=== PATIENT | female | born 1940 | race Caucasian/White ===

== ENCOUNTER 2016-05-29 08:06 | Day surgery (SDC) | payer MEDICARE ==
[2016-05-24 12:32] VITALS: BMI 22.3
[~2016-05-29 08:06] MED LIST: LACTATED RINGERS 1,000 ML IV SCH; LIDOCAINE 1% 20 ML VIAL (10MG/ML) FOR IV START INTRADERMA PRN
[2016-05-29 08:20] VITALS: TEMP 98
[2016-05-29] MEDS ORDERED: LACTATED RINGERS 1,000 ML IV ONE (08:20)
[2016-05-29] MEDS ORDERED: LIDOCAINE 1% 20 ML VIAL (10MG/ML) FOR IV START INTRADERMA ONE (08:21)
[2016-05-29] MEDS ORDERED: LIDOCAINE 1% INJ 10MG/ML (20 ML MDV) ONE (09:21)
[2016-05-29] MEDS ORDERED: PROPOFOL 10 MG/ML 20 ML VIAL IV ONE (09:21)
--- NOTE | 2016-05-29 09:39 | P.PCN ---
Date of Procedure: 05/29/16 Procedure(s) Performed: BRIEF HISTORY: Patient is a 75-year-old pleasant white female scheduled for an elective colonoscopy as a part of evaluation of change in bowel habits. Her last colonoscopy was 10 years ago. PROCEDURE PERFORMED: Colonoscopy. PREOPERATIVE DIAGNOSIS: Change in bowel habits. IV sedation per Anesthesia. PROCEDURE: After informed consent was obtained, the patient, was brought into the endoscopy unit. IV sedation was administered by Anesthesia under continuous monitoring. Digital rectal examination was normal. Initially the Olympus CF- 160 flexible video colonoscope was then inserted in the rectum, gradually advanced into the cecum without any difficulty. Careful examination was performed as the scope was gradually being withdrawn. Ileocecal valve and the appendiceal orifice were visualized and appeared normal. Prep was excellent. Mucosa of the cecum, ascending colon, transverse colon, descending colon, sigmoid colon, and rectum appeared normal. Retroflexion was performed in the rectum and no lesions were seen. The patient tolerated the procedure well. IMPRESSION: Normal-appearing colon from rectum to cecum with no evidence of colitis or colorectal neoplasia.. RECOMMENDATIONS: Findings of this examination were discussed with the patient as well as a family. Because of her age I would not recommend any further screening colonoscopy.
[2016-05-29 09:48] VITALS: RESP 16
[2016-05-29 10:17] VITALS: BP 134/75; PULSE 69
== END 2016-05-29 10:27 | disposition home or self-care (01) ==
LOC: ORWHC2ENDO 08:06
PROVIDERS: ATTEND Internal Medicine Gastroenterology
DX: R19.4 Change in bowel habit (principal); E07.9 Disorder of thyroid, unspecified; Z79.899 Other long term (current) drug therapy
CPT/HCPCS: 45378; J2001; J2704

== ENCOUNTER → 2016-05-29 | Outpatient (CLI) | payer MEDICARE | LOC: LABWHC1 07:46 | PROVIDERS: ATTEND Family Medicine | DX: E03.9 Hypothyroidism, unspecified (principal); M79.1 Myalgia; E55.9 Vitamin D deficiency, unspecified; R19.4 Change in bowel habit | CPT/HCPCS: 36415; 82272 ==

== ENCOUNTER → 2016-06-07 | Outpatient (CLI) | payer MEDICARE ==
[2016-06-07 08:55] LABS: Basophils # (A) 0.1 k/uL (0-0.2); Basophils % (A) 1 %; CH 29.4; CHCM 32.7; Eosinophils # (A) 0.2 k/uL (0-0.7); Eosinophils % (A) 4 %; HCT 42.3 % (34.0-46.0); HDW 2.43; HGB 14.1 gm/dL (11.4-16.0); Luc % (Auto) 3; Lymphocytes # (A) 1.6 k/uL (1.0-4.8); Lymphocytes % (A) 27 %; MCH 30.1 pg (25.0-35.0); MCHC 33.3 g/dL (31.0-37.0); MCV 90.4 fL (80.0-100.0); Monocytes # (A) 0.4 k/uL (0-1.0); Monocytes % (A) 7 %; Neutrophils # (A) 3.5 k/uL (1.3-7.7); Neutrophils % (A) 58 %; RBC 4.68 m/uL (3.80-5.40); RDW 13.6 % (11.5-15.5); WBC (Perox) 6.05
[2016-06-07 10:14] LABS: Erythrocyte Sedimentation Rate 4 mm/hr (0-20)
[2016-06-07 12:17] LABS: ALT 31 U/L (9-52); AST 30 U/L (14-36); Alkaline Phosphatase 58 U/L (38-126); Anion Gap 10 mmol/L; Blood Urea Nitrogen 14 mg/dL (7-17); Calcium 9.7 mg/dL (8.4-10.2); Carbon Dioxide 28 mmol/L (22-30); Chloride 106 mmol/L (98-107); Cholesterol 174 mg/dL (<200); Glucose 85 mg/dL (74-99); HDL Cholesterol 64 mg/dL (40-60); Magnesium 2.3 mg/dL (1.6-2.3); Non-African American GFR(MDRD) >60 (>60 ml/min/1.73 sqM); Potassium 4.3 mmol/L (3.5-5.1); Sodium 144 mmol/L (137-145); Total Bilirubin 0.6 mg/dL (0.2-1.3); Total Protein 7.3 g/dL (6.3-8.2); Triglycerides 66 mg/dL (<150)
[2016-06-07 12:47] LABS: Vitamin B12 538 pg/mL
== END | disposition home or self-care (01) ==
LOC: LABWHC1 08:19
PROVIDERS: ATTEND Family Medicine
DX: E55.9 Vitamin D deficiency, unspecified (principal); E03.9 Hypothyroidism, unspecified; M79.1 Myalgia
CPT/HCPCS: 36415; 80053; 80061; 82306; 82607; 83735; 83874; 84439; 84443; 85025; 85652

== ENCOUNTER → 2016-12-27 | Outpatient (CLI) | payer MEDICARE ==
--- NOTE | 2016-12-27 13:51 | MM ---
Reason for exam: additional evaluation requested from abnormal screening. Last mammogram was performed less than 1 month ago. History: Patient is postmenopausal. Benign excisional biopsy of the left breast. Physical Findings: Nurse did not find any significant physical abnormalities on exam. MG 3D Work Up W/Cad LT LM and CC with magnification view(s) were taken of the left breast. Prior study comparison: December 19, 2016, bilateral MG 3d screening mammo w/cad. February 21, 2015, bilateral MG 3d screening mammo w/cad. The breast tissue is heterogeneously dense. This may lower the sensitivity of mammography. Finding: There are dystrophic, grouped/clustered calcifications in the upper outer quadrant, middle position of the left breast. These results were verbally communicated with the patient and result sheet given to the patient on 12/27/16. ASSESSMENT: Probably benign, BI-RAD 3 RECOMMENDATION: Follow-up diagnostic mammogram of the left breast in 6 months.
== END | disposition home or self-care (01) ==
LOC: RADMAMWWP 12:54
PROVIDERS: ATTEND Family Medicine
DX: R92.8 Other abnormal and inconclusive findings on diagnostic imaging of breast (principal); Z85.89 Personal history of malignant neoplasm of other organs and systems
CPT/HCPCS: G0206; G0279

== ENCOUNTER → 2017-05-19 | Outpatient (CLI) | payer MEDICARE ==
[2017-05-19 10:11] LABS: T4, Free (Free Thyroxine) 1.55 ng/dL (0.78-2.19)
== END | disposition home or self-care (01) ==
LOC: LABWHC1 08:44
PROVIDERS: ATTEND Family Medicine
DX: E03.9 Hypothyroidism, unspecified (principal)
CPT/HCPCS: 36415; 84439; 84443

== ENCOUNTER → 2017-07-07 | Outpatient (CLI) | payer MEDICARE ==
--- NOTE | 2017-07-07 11:53 | MM ---
Reason for exam: follow-up at short interval from prior study. Last mammogram was performed 6 months ago. History: Patient is postmenopausal. Benign excisional biopsy of the left breast. Physical Findings: Nurse did not find any significant physical abnormalities on exam. MG 3D Diag Mammo W/Cad LT CC, MLO, and ML view(s) were taken of the left breast. Prior study comparison: December 27, 2016, left breast MG 3d work up w/cad LT. December 19, 2016, bilateral MG 3d screening mammo w/cad. The breast tissue is heterogeneously dense. This may lower the sensitivity of mammography. Two groups of microcalcifications 12 o'clock anteriorly and upper outer quadrant middle depth remain unchanged. These can be reassessed in 6 months at the time of the patients annual exam. These results were verbally communicated with the patient and result sheet given to the patient on 07/07/17. ASSESSMENT: Probably benign, BI-RAD 3 RECOMMENDATION: Follow-up diagnostic mammogram of both breasts in 6 months.
== END | disposition home or self-care (01) ==
LOC: RADMAMWWP 10:54
PROVIDERS: ATTEND Family Medicine
DX: R92.1 Mammographic calcification found on diagnostic imaging of breast (principal)
CPT/HCPCS: 77065; G0279; 77061

== ENCOUNTER → 2017-11-17 | Outpatient (CLI) | payer MEDICARE ==
[2017-11-17 08:31] LABS: Basophils # (A) 0.1 k/uL (0-0.2); Basophils % (A) 1 %; Eosinophils # (A) 0.4 k/uL (0-0.7); Eosinophils % (A) 8 %; HCT 42.3 % (34.0-46.0); HGB 13.3 gm/dL (11.4-16.0); Lymphocytes # (A) 1.6 k/uL (1.0-4.8); Lymphocytes % (A) 32 %; MCH 28.8 pg (25.0-35.0); MCHC 31.5 g/dL (31.0-37.0); MCV 91.7 fL (80.0-100.0); Mean Platelet Volume 6.4; Monocytes # (A) 0.4 k/uL (0-1.0); Monocytes % (A) 7 %; Neutrophils # (A) 2.6 k/uL (1.3-7.7); Neutrophils % (A) 50 %; Platelet Count 312 k/uL (150-450); RBC 4.61 m/uL (3.80-5.40); RDW 13.2 % (11.5-15.5); WBC 5.1 k/uL (3.8-10.6)
[2017-11-17 08:45] LABS: Albumin 4.1 g/dL (3.5-5.0); Calcium 9.5 mg/dL (8.4-10.2); Potassium 4.6 mmol/L (3.5-5.1); Total Bilirubin 0.4 mg/dL (0.2-1.3); Total Protein 6.9 g/dL (6.3-8.2)
[2017-11-17 09:00] LABS: T4, Free (Free Thyroxine) 1.59 ng/dL (0.78-2.19)
== END ==
LOC: LABWHC1 07:49
PROVIDERS: ATTEND Family Medicine
DX: Z00.00 Encounter for general adult medical examination without abnormal findings (principal); E03.9 Hypothyroidism, unspecified; R03.0 Elevated blood-pressure reading, without diagnosis of hypertension
CPT/HCPCS: 36415; 80053; 80061; 84439; 84443; 85025

== ENCOUNTER → 2017-12-29 | Outpatient (CLI) | payer MEDICARE ==
--- NOTE | 2017-12-29 14:07 | MM ---
Reason for exam: follow-up at short interval from prior study. Last mammogram was performed 6 months ago. History: Patient is postmenopausal. Benign excisional biopsy of the left breast. Physical Findings: Nurse did not find any significant physical abnormalities on exam. MG 3D Diag Mammo W/Cad DON Bilateral CC and MLO view(s) were taken. Prior study comparison: July 07, 2017, left breast MG 3d diag mammo w/cad LT. December 27, 2016, left breast MG 3d work up w/cad LT. The breast tissue is heterogeneously dense. This may lower the sensitivity of mammography. These results were verbally communicated with the patient and result sheet given to the patient on 12/29/17. No significant changes when compared with prior studies. ASSESSMENT: Benign, BI-RAD 2 RECOMMENDATION: Routine screening mammogram of the right breast in 1 year.
== END | disposition home or self-care (01) ==
LOC: RADMAMWWP 08:57
PROVIDERS: ATTEND Family Medicine
DX: R92.8 Other abnormal and inconclusive findings on diagnostic imaging of breast (principal)
CPT/HCPCS: 77066; G0279; 77062

== ENCOUNTER → 2019-01-27 | Outpatient (CLI) | payer MEDICARE ==
[2019-01-27 09:31] LABS: Basophils # (A) 0.1 k/uL (0-0.2); Basophils % (A) 1 %; Eosinophils # (A) 0.2 k/uL (0-0.7); Eosinophils % (A) 4 %; HCT 40.9 % (34.0-46.0); HGB 14.1 gm/dL (11.4-16.0); Lymphocytes # (A) 1.4 k/uL (1.0-4.8); Lymphocytes % (A) 29 %; MCH 30.8 pg (25.0-35.0); MCHC 34.5 g/dL (31.0-37.0); MCV 89.4 fL (80.0-100.0); Mean Platelet Volume 7.4; Monocytes # (A) 0.4 k/uL (0-1.0); Monocytes % (A) 9 %; Neutrophils # (A) 2.7 k/uL (1.3-7.7); Neutrophils % (A) 54 %; Platelet Count 374 k/uL (150-450); RBC 4.57 m/uL (3.80-5.40); RDW 13.2 % (11.5-15.5); WBC 5.1 k/uL (3.8-10.6)
[2019-01-27 17:06] LABS: African American GFR (CKD) 70.5 (60.0-200.0); Albumin 4.5 g/dL (3.80-4.90); Albumin/Globulin Ratio 2.14 (1.60-3.17); Anion Gap 8.3 mmol/L (4.00-12.00); BUN/Creat Ratio 17.78 Ratio (12.00-20.00); Calcium 9.6 mg/dL (8.7-10.3); Carbon Dioxide 28.7 mmol/L (21.6-31.8); Chol/HDL Ratio 2.87; Globulin 2.1 g/dL (1.6-3.3); LDL Cholesterol,Calculated 110.8 mg/dL (0.0-131.0); Non-African American GFR(CKD) 60.8 (60.0-200.0); Potassium 4.4 mmol/L (3.5-5.5); Total Bilirubin 0.5 mg/dL (0.2-1.2); Total Protein 6.6 g/dL (6.2-8.2); VLDL Calculation 14.2 mg/dL (5.00-40.00)
== END | disposition home or self-care (01) ==
LOC: LABWHC1 08:24
PROVIDERS: ATTEND Family Medicine
DX: Z00.00 Encounter for general adult medical examination without abnormal findings (principal); E03.9 Hypothyroidism, unspecified; R03.0 Elevated blood-pressure reading, without diagnosis of hypertension
CPT/HCPCS: 36415; 80053; 80061; 84443; 85025

== ENCOUNTER → 2020-04-25 | Outpatient (CLI) | payer MEDICARE ==
--- NOTE | 2020-04-25 18:37 | BD ---
EXAMINATION TYPE: Axial Bone Density DATE OF EXAM: 04/25/2020 COMPARISON: Prior DEXA bone scan 2016 CLINICAL HISTORY: Postmenopausal female with osteopenia. Height: 5 FT 4 IN Weight: 128 FRAX RISK QUESTIONS: Alcohol (3 or more units per day): NO Family History (Parent hip fracture): NO Glucocorticoids (More than 3mos): NO (Ex: prednisone, prednisolone, methylprednisolone, dexamethasone, and hydrocortisone). History of Fracture in Adulthood: NO Secondary Osteoporosis: 1. Type 1 Diabetes: NO 2. Hyperthyroidism: NO 3. Menopause before 45: NO 4. Malnutrition: NO 5. Chronic liver disease: NO Rheumatoid Arthritis: NO Current Tobacco Use: NO RISK FACTORS HISTORY OF: Surgery to Spine/Hip(right/left)/Wrist (right/left): NO Family History of Osteoporosis: NO Active: YES Diet low in dairy products/other sources of calcium: NO Postmenopausal woman: TOTAL HYST AGE 44 Take estrogen and/or progesterone medications: NO Lost more than 2 inches in height since high school: NO MEDICATIONS: Thyroid Medications: YES Which medication: LEVOTHYROXINE How Lon YEARS Additional Medications: LEVOTHYROXINE, Additional History: EXAM MEASUREMENTS: Bone mineral densitometry was performed using the [employer] System. Bone mineral density as measured about the Lumbar spine is: ----- L1-L4(G/cm2): 0.955 T Score Values are as follows: ----- L2: -2.6 ----- L3: -2.3 ----- L4: -0.6 ----- L1-L4: -1.9 Bone mineral density has: DECREASED -12.2 % since study of: 2016 Bone mineral density about the R hip (g/cm2): 0.857 Bone mineral density about the L hip (g/cm2): 0.898 T Score values are as follows: -----R Neck: -1.3 -----L Neck: -1.0 -----R Total: -1.2 -----L Total: -0.8 Bone mineral density has: DECREASED -1.2 % since study of: 2017 IMPRESSION: Osteopenia (T Score between -2.5 and -1) is redemonstrated. Bone density noted decreased or is dimini shed from prior. There remains slightly increased risk of fracture and the patient may be considered for treatment. Re-Screen 2-5 years. NOTE: T-SCORE=SD OF THE YOUNG ADULT MEAN.
--- NOTE | 2020-04-27 11:53 | MM ---
Reason for exam: screening (asymptomatic). Last mammogram was performed 2 years and 4 months ago. History: Patient is postmenopausal. Benign excisional biopsy of the left breast. Physical Findings: A clinical breast exam by your physician is recommended on an annual basis and results should be correlated with mammographic findings. MG 3D Screening Mammo W/Cad Bilateral CC and MLO view(s) were taken. Prior study comparison: December 29, 2017, bilateral MG 3d diag mammo w/cad DON. July 07, 2017, left breast MG 3d diag mammo w/cad LT. The breast tissue is heterogeneously dense. This may lower the sensitivity of mammography. Benign oil cyst calcifications. Stable asymmetric density posterior lateral left CC view. No significant changes when compared with prior studies. ASSESSMENT: Benign, BI-RAD 2 RECOMMENDATION: Routine screening mammogram of both breasts in 1 year.
== END ==
LOC: RADMAMWWP 13:13
PROVIDERS: ATTEND Family Medicine
DX: Z12.31 Encounter for screening mammogram for malignant neoplasm of breast (principal); M85.89 Other specified disorders of bone density and structure, multiple sites; Z78.0 Asymptomatic menopausal state
CPT/HCPCS: 77063; 77067; 77080

== ENCOUNTER → 2021-01-31 | Outpatient (CLI) | payer MEDICARE ==
[2021-01-31 15:00] LABS: Basophils # (A) 0.07 X 10*3/uL (0.00-0.10); Basophils % (A) 1.2 %; Eosinophils # (A) 0.48 X 10*3/uL (0.04-0.35); Eosinophils % (A) 8.4 %; HCT 41.2 % (37.2-46.3); HGB 13.1 g/dL (12.0-15.0); Lymphocytes % (A) 29.7 %; MCH 29.6 pg (27.0-32.0); MCHC 31.8 g/dL (32.0-37.0); MCV 93.2 fL (80.0-97.0); Monocytes # (A) 0.57 X 10*3/uL (0.20-1.00); Monocytes % (A) 9.9 %; Neutrophils # (A) 2.89 X 10*3/uL (1.80-7.70); Neutrophils % (A) 50.5 %; Platelet Count 395 X 10*3/uL (140-440); RBC 4.42 X 10*6/uL (4.10-5.20); RDW 13.4 % (11.5-14.5); WBC 5.73 X 10*3/uL (4.50-10.00)
[2021-01-31 15:52] LABS: ALT 21 U/L (8-44); AST 26 U/L (13-35); African American GFR (CKD) 67.2 (60.0-200.0); Albumin 4.4 g/dL (3.8-4.9); Albumin/Globulin Ratio 1.85 (1.60-3.17); Alkaline Phosphatase 70 U/L (41-126); Blood Urea Nitrogen 13.8 mg/dL (9.0-27.0); Calcium 9.7 mg/dL (8.7-10.3); Carbon Dioxide 25.2 mmol/L (20.0-27.5); Chloride 102 mmol/L (96-109); Chol/HDL Ratio 2.99 Ratio; Globulin 2.4 g/dL (1.6-3.3); Glucose 92 mg/dL (70-110); LDL Cholesterol,Calculated 122.8 mg/dL (0.0-131.0); Non-African American GFR(CKD) 57.9 (60.0-200.0); Potassium 3.9 mmol/L (3.5-5.5); Sodium 140 mmol/L (135-145); Total Protein 6.8 g/dL (6.2-8.2); VLDL Calculation 11.62 mg/dL (5.00-40.00)
== END | disposition home or self-care (01) ==
LOC: LABWHC1 09:07
PROVIDERS: ATTEND Family Medicine
DX: Z00.00 Encounter for general adult medical examination without abnormal findings (principal); E03.9 Hypothyroidism, unspecified; M85.80 Other specified disorders of bone density and structure, unspecified site
CPT/HCPCS: 36415; 80053; 80061; 84443; 85025